=== PATIENT | female | born 2000 | race Caucasian/White ===

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

== ENCOUNTER 2024-01-30 10:41 | Emergency (ER) | payer BC ==
[~2024-01-30] VITALS: Ht 160 cm; Wt 48.1 kg
[2024-01-30] MEDS ORDERED: PROP10TA56 PO (10:58)
[2024-01-30 11:57] LABS: URINE PREG TEST NEGATIVE (NEGATIVE)
[2024-01-30 13:51] VITALS: BP 110/70; TEMP 97; O2SAT 99
[2024-01-30] MEDS ORDERED: L-NO1TBD6 PO (14:15)
[2024-01-30] MEDS ORDERED: HOME MED LIST COMPLETE! XX SCH (14:20)
== END 2024-01-30 14:35 | disposition home or self-care (01) ==
LOC: M ED 10:41
DX: R10.9 Unspecified abdominal pain (principal); K59.00 Constipation, unspecified; F17.200 Nicotine dependence, unspecified, uncomplicated; Z90.49 Acquired absence of other specified parts of digestive tract; Z79.899 Other long term (current) drug therapy

== ENCOUNTER → 2024-09-08 | Outpatient (REF) | payer BC ==
[~2024-09-08] MED LIST: L-NO1TBD6 PO; PROP10TA56 PO
[2024-09-08 17:37] LABS: APPEARANCE, URINE CLOUDY (CLEAR); BACTERIA, URINE AUTO NEGATIVE (NEGATIVE); BILIRUBIN, URINE AUTO NEGATIVE (NEGATIVE); BLOOD, URINE BLOOD 3+ (NEGATIVE); COLOR, URINE AMBER (YELLOW); GLUCOSE, URINE (UA) AUTO NEGATIVE (NEGATIVE); KETONE, URINE AUTO NEGATIVE (NEGATIVE); LEUKOCYTE ESTERASE, URINE AUTO 2+ (NEGATIVE); MUCUS, URINE SMALL (NEGATIVE); NITRITE, URINE AUTO NEGATIVE (NEGATIVE); PROTEIN, URINE AUTO 3+ mg/dL (NEGATIVE); RBC, URINE AUTO TNTC /HPF (0-3); SPECIFIC GRAVITY URINE AUTO 1.019 (1.002-1.035); SQUAMOUS EPITHELIAL CELL UR AU 15 /HPF (0-6); UROBILINOGEN, URINE AUTO 0.2 mg/dL (0.0-2.0); WBC, URINE AUTO TNTC /HPF (0-3)
== END ==
LOC: M SFHCWAGY 16:56
PROVIDERS: ATTEND Obstetrics & Gynecology
DX: R30.0 Dysuria (principal)

== ENCOUNTER → 2024-09-29 | Outpatient (REF) | payer BC ==
[2024-09-29 18:12] LABS: HEMATOCRIT 37.5 % (36.0-47.0); MEAN CORPUSCULAR HGB CONC 34.7 g/dl (32.0-36.5); MEAN CORPUSCULAR VOLUME 89.5 fl (80.0-96.0); PLATELET COUNT, AUTOMATED 185 10^3/uL (150-450); RED BLOOD COUNT 4.19 10^6/uL (4.00-5.40); WHITE BLOOD COUNT 7.3 10^3/uL (4.0-10.0)
[2024-09-29 18:58] LABS: HIV 1&2 SCREEN NEGATIVE (NEGATIVE)
[2024-09-29 19:05] LABS: HEPATITIS C VIRUS ABY INDEX 0.06 INDEX (<0.8)
[2024-09-29 20:11] LABS: Trichomonas vaginalis (AMP) NOT DETECTED (NEGATIVE)
[2024-09-29 20:35] LABS: GC DNA AMPLIFICATION NEGATIVE (NEGATIVE)
== END ==
LOC: M PLALAB 16:47
PROVIDERS: ATTEND Nurse Practitioner Family
DX: Z34.03 Encounter for supervision of normal first pregnancy, third trimester (principal)

== ENCOUNTER → 2024-09-30 | Outpatient (CLI) | payer BC | LOC: M WHC 15:10 | PROVIDERS: ATTEND Obstetrics & Gynecology | DX: Z53.9 Procedure and treatment not carried out, unspecified reason (principal) ==

== ENCOUNTER 2024-12-01 15:10 | Outpatient (CLI) | payer BC ==
[~2024-12-01] VITALS: Ht 162.6 cm; Wt 56.7 kg
[2024-12-01 15:29] VITALS: BP 121/68
[2024-12-01 15:30] VITALS: BP 115/63; O2SAT 98
[2024-12-01] MEDS ORDERED: HOME MED LIST COMPLETE! XX SCH (15:30)
[2024-12-01 17:34] VITALS: BP 120/83
[2024-12-01 18:39] VITALS: BP 109/56
== END 2024-12-01 20:22 | disposition home or self-care (01) ==
LOC: M LDO 15:10
PROVIDERS: ATTEND Obstetrics & Gynecology
DX: O26.892 Other specified pregnancy related conditions, second trimester (principal); O99.342 Other mental disorders complicating pregnancy, second trimester; R10.10 Upper abdominal pain, unspecified; F41.8 Other specified anxiety disorders; Z3A.26 26 weeks gestation of pregnancy
CPT/HCPCS: 59025; G0463

== ENCOUNTER → 2024-12-12 | Outpatient (CLI) | payer BC | LOC: M WHC 09:14 | PROVIDERS: ATTEND Specialist | DX: Z34.02 Encounter for supervision of normal first pregnancy, second trimester (principal) ==

== ENCOUNTER 2024-12-31 14:23 | Outpatient (CLI) | payer BC ==
[2024-12-31 14:49] VITALS: BP 103/58; O2SAT 98
[2024-12-31 15:25] LABS: KETONE, URINE AUTO RFX NEGATIVE (NEGATIVE); LEUKOCYTE ESTERASE UR AUTO RFX TRACE (NEGATIVE); MUCUS, URINE RFX SMALL (NEGATIVE); NITRITE, URINE AUTO RFX NEGATIVE (NEGATIVE); RBC, URINE AUTO RFX 1 /HPF (0-3); SQUAM EPITHELIAL CELL UR AURFX 3 /HPF (0-6); WBC, URINE AUTO RFX 4 /HPF (0-3)
== END 2024-12-31 17:45 | disposition home or self-care (01) ==
LOC: M LDO 14:23
PROVIDERS: ATTEND Obstetrics & Gynecology
DX: O26.893 Other specified pregnancy related conditions, third trimester (principal); O99.343 Other mental disorders complicating pregnancy, third trimester; M54.50 Low back pain, unspecified; F41.8 Other specified anxiety disorders; Z3A.30 30 weeks gestation of pregnancy
CPT/HCPCS: 59025; 81001; 87086; G0463

== ENCOUNTER → 2025-02-08 | Outpatient (REF) | payer BC | LOC: M LAB REF 14:00 | PROVIDERS: ATTEND Advanced Practice Midwife | DX: Z34.80 Encounter for supervision of other normal pregnancy, unspecified trimester (principal) ==

== ENCOUNTER 2025-03-11 10:24 | Inpatient (IN) | payer BC ==
[~2025-03-11] VITALS: Ht 160 cm; Wt 64.0 kg
[2025-03-11] VITALS (16 sets, daily range): BP systolic 104–152; BP diastolic 57–86; O2SAT 100
[2025-03-11] MEDS ORDERED: HOME MED LIST COMPLETE! XX SCH (10:50)
[2025-03-11] MEDS: LACTATED RINGER'S 1000 ML IV STA (13:08)
[2025-03-11] MEDS ORDERED: LR 1,000 ML IV SCH (13:10)
[2025-03-11] MEDS ORDERED: LIDOCAINE 1% MDV 20 ML VIAL INFIL PRN (13:10)
[2025-03-11] MEDS ORDERED: OXYTOCIN INJ 10UNITS/ML 1ML VIAL IV PRN (13:10)
[2025-03-11] MEDS ORDERED: OXYTOCIN INJ 10UNITS/ML 1ML VIAL IM PRN (13:10)
[2025-03-11] MEDS ORDERED: TRANEXAMIC ACID INJection 1,000 MG in NS 100 ML IV PRN (13:10)
[2025-03-11] MEDS ORDERED: OXYTOCIN DRIP 30 UNITS in IV 1 EA IV SCH (13:10)
[2025-03-11] MEDS ORDERED: METHYLERGONOVINE MALEATE 0.2 MG/ML 1 ML VIAL IM PRN (13:10)
[2025-03-11] MEDS ORDERED: CARBOPROST TROMETHAMINE 250 MCG/ML AMP IM PRN (13:10)
[2025-03-11] MEDS ORDERED: OXYTOCIN DRIP 30 UNITS in IV 1 EA IV PRN (13:10)
[2025-03-11] MEDS: LR 1,000 ML IV SCH (14:22)
[2025-03-11 14:31] LABS: PLATELET COUNT, AUTOMATED 231 10^3/uL (150-450)
[2025-03-11 15:35] LABS: HIV 1&2 SCREEN NEGATIVE (NEGATIVE)
[2025-03-11 15:43] LABS: HEPATITIS C VIRUS ABY INDEX < 0.02 INDEX (<0.8)
[2025-03-11 18:36] LABS: CORD GAS ABE A -9.3; CORD GAS HCO3 A 18.2 MMOL/L; CORD GAS O2 SAT A 84.3 %; CORD GAS PCO2 A 45.0 mmHg; CORD GAS PH A 7.225 UNITS; CORD GAS PO2 A 47.4 mmHg; CORD GAS SBC A 16.9 MMOL/L; CORD GAS TCO2 A 19.6 MMOL/L
[2025-03-11 18:37] LABS: CORD GAS ABE V -6.6; CORD GAS HCO3 V 18.9 MMOL/L; CORD GAS O2 SAT V 86.1 %; CORD GAS PCO2 V 37.9 mmHg; CORD GAS PH V 7.316 UNITS; CORD GAS PO2 V 45.2 mmHg; CORD GAS SBC V 18.9 MMOL/L; CORD GAS TCO2 V 20.1 MMOL/L
[2025-03-11] MEDS ORDERED: IBUPROFEN 800 MG TAB PO PRN (18:45)
[2025-03-11] MEDS ORDERED: MOM 30 ML SUSPENSION UDC PO PRN (18:45)
[2025-03-11] MEDS ORDERED: DIBUCAINE 1% OINTMENT 30 GM TOP PRN (18:45)
[2025-03-11] MEDS ORDERED: RHOGAM 300MCG (1500IU) INJ IM SCH (18:45)
[2025-03-11] MEDS ORDERED: ANUSOL HC CREAM 30 GM TOP PRN (18:45)
[2025-03-11] MEDS ORDERED: DOCUSATE SODIUM 100 MG CAPSULE PO PRN (18:45)
[2025-03-11] MEDS ORDERED: ACETAMINOPHEN 500 MG TAB PO PRN (18:45)
[2025-03-11] MEDS: OXYTOCIN DRIP 30 UNITS in IV 1 EA IV PRN (18:52)
[2025-03-11] MEDS: METHYLERGONOVINE MALEATE 0.2 MG TAB PO PRN (20:25)
[2025-03-12 06:00] VITALS: BP 119/59; O2SAT 99
[2025-03-12] MEDS: PRENATAL VITAMINS CHEWABLE TABLET PO SCH (09:00)
[2025-03-12 18:00] VITALS: BP 116/69; O2SAT 100
[2025-03-13 06:10] VITALS: BP 110/59; O2SAT 98
[2025-03-13] MEDS ORDERED: MEASLES,MUMPS,RUBELLA VACCINE INJ (MMR-II) SC.IMMUN ONE (09:00)
[2025-03-13] MEDS ORDERED: IBUP80TA PO (10:57)
[2025-03-13] MEDS ORDERED: ACET-683 PO (10:57)
== END 2025-03-13 11:45 | disposition home or self-care (01) | DRG 560 ==
LOC: M LDO 10:24 → M LDI 13:09 → M OBS 21:06
PROVIDERS: ADMIT Obstetrics & Gynecology; ATTEND Obstetrics & Gynecology
PROC: 10E0XZZ Delivery of Products of Conception, External Approach (ICD-10-PCS; principal; 2025-03-11)
DX: O48.0 Post-term pregnancy (principal); O99.344 Other mental disorders complicating childbirth; F40.232 Fear of other medical care; Z37.0 Single live birth; Z3A.40 40 weeks gestation of pregnancy